=== PATIENT | male | born 1965 | race Caucasian/White ===

== ENCOUNTER → 2019-04-29 10:43 | Outpatient (BNVA) | payer OTHER, BC, SELFPAY | PROVIDERS: Family Provider Urology; PCP Urology; Visit Provider Urology | DX: E29.1 Testicular hypofunction (principal); N52.9 Male erectile dysfunction, unspecified; Z12.11 Encounter for screening for malignant neoplasm of colon | CPT/HCPCS: 81001; 84153 ==

== ENCOUNTER 2019-07-20 06:10 | Day surgery (SDC) | payer BC, SELFPAY ==
[2019-07-15 14:34] VITALS: BMI 28.7
[2019-07-20 06:22] VITALS: BP 152/100; PULSE 78; RESP 20; TEMP 36.7; O2SAT 96
--- NOTE | 2019-07-20 06:30 | W.PM.OPSFHP ---
Same Day Surgery H&P Indication for Procedure/HPI DATE OF PROCEDURE: July 20, 2019 CHIEF COMPLAINT/INDICATIONFOR SURGICAL PROCEDURE: Screening colonoscopy PREOP DIAGNOSIS: Encounter for screening colonoscopy PLANNED PROCEDRUE: Operation Date: 07/20/19 07:00 Proposed Procedures p Colonoscopy 66856 SCREEN FOR COLON CANCER Z12.11(Not Applicable) - Kobi Esparza MD This is a pleasant 54 years old gentleman never had screening colonoscopy before he was referred to surgery GI practice to discuss screening colonoscopy and does not have any pertinent history related to change in bowel habits, reports a skin tag that is causing irritation at the perianal area. Patient points out that he has a small skin tag perianal that has been irritating him ROS All systems have been reviewed negative except as for the above or per problem list Medications/Allergies* Home Medications Medication Instructions Recorded Confirmed Type No Known Home Medications 04/29/19 History Allergies/Adverse Reactions Allergy/AdvReac Type Severity Reaction Status Date / Time No Known Allergies Allergy Verified 07/20/19 06:47 Pertinent History/Comorbid Conditions* Medical History (Updated 04/29/19 @ 14:45 by Kelvin Vallecillo MD) ASHD (arteriosclerotic heart disease) Nonobstructive Erectile dysfunction Hypogonadism in male Pericarditis Surgical History (Updated 04/29/19 @ 14:44 by Kelvin Vallecillo MD) History of ankle surgery BILATERAL Previous back surgery Social History Smoking and tobacco status: never smoked Alcohol intake: current Alcohol intake frequency: holidays/special occasions only Household members: spouse Marital status: service: Yes Current occupational status: employed 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
[2019-07-20] MEDS: sodium chloride 0.9% 1,000 ML 30 ML IV (06:38)
--- NOTE | 2019-07-20 06:42 | ANES.PREANE2 ---
Pre-Anesthetic Assessment Pre-Anesthetic Assessment: Height/Weight: Height 1.91 m Weight 104.326 kg Temp Pulse Resp BP Pulse Ox 98.1 F 78 20 H 152/100 96 07/20/19 06:22 07/20/19 06:22 07/20/19 06:22 07/20/19 06:22 07/20/19 06:22 Preop Diagnosis: Screening colonoscopy Proposed Procedure: Operation Date: 07/20/19 07:00 Proposed Procedures p Colonoscopy [id number] SCREEN FOR COLON CANCER Z12.11(Not Applicable) - Kobi Esparza MD Was Beta Jhoana taken within 24 hours: N/A Last intake: Intake Last Liquid Date 07/19/19 Last Liquid Time 23:15 Last Solid Date 07/18/19 Last Solid Time 22:00 Social: Social History: Alcohol and No tobacco Exam: Pre-Anes Outpt Exam: alert, oriented x 3, clear to auscultation bilaterally and regular rate & rhythm Additional Exam Findings (including area of procedure): Airway: Submandibular: WNL Cervical ROM: WNL MP: 2 Dentition: Partials History/ROS: No significant history except as noted and No significant complaints Pulmonary: Pulmonary: None reported CV/HEM: Comments: pericarditit : : None reported Hepatic: Hepatic: None reported GI: GI: None reported Metabolic: Metabolic: None reported Musc/skel: Musc/skel: None reported Neuropsych: Neuropsych: None reported Anesthetic Plan: ASA status: 2 Anesthesia: Anesthesia Evaluation and MAC Risk of > 500 ml blood loss (7ml/kg in children): No Meds/Allergies Current Medications: Current Medications Generic Name Dose Route Start Last Admin Trade Name Freq PRN Reason Stop Dose Admin Sodium Chloride 1,000 mls @ 30 ml s/hr 07/20/19 06:15 07/20/19 06:38 Sodium Chloride 0.9% IV 07/21/19 06:14 30 mls/hr .Q24H MIRTHA Administration PFSH Anesthesia PFSH: Medical History ASHD (arteriosclerotic heart disease) Nonobstructive Erectile dysfunction Hypogonadism in male Pericarditis Surgical History History of ankle surgery BILATERAL Previous back surgery Social History (Updated 05/05/19 @ 15:45 by Honey Forde RN) Smoking and tobacco status: never smoked Alcohol intake: current Alcohol intake frequency: holidays/special occasions only Household members: spouse Marital status: service: Yes Current occupational status: employed 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
[2019-07-20 07:50] VITALS: BP 124/79; PULSE 78; RESP 16; TEMP 36.8; O2SAT 96
[2019-07-20 08:09] VITALS: BP 140/94; PULSE 85; RESP 18; O2SAT 95
--- NOTE | 2019-07-20 08:35 | PC.NURSE ---
PT AND SPOUSE GIVEN SPECIFIC INSTRUCTIONS CONCERNING POLYP RETRIEVAL. SUPPLIES SENT WITH PT AND SPOUSE. ALSO GIVEN INSTRUCTIONS FOR PT TO NOT WORK TODAY . PT STATES HE HAD PAPER WORK THAT NEEDED TO BE DONE.
== END 2019-07-20 08:33 | disposition home or self-care (01) ==
PROVIDERS: PCP Urology; Visit Provider Surgery
PROC: 0DJD8ZZ Inspection of Lower Intestinal Tract, Via Natural or Artificial Opening Endoscopic (ICD-10-PCS; CPT 45378; principal; 2019-07-20 07:00)
DX: Z12.11 Encounter for screening for malignant neoplasm of colon (principal); D12.0 Benign neoplasm of cecum; K64.4 Residual hemorrhoidal skin tags
CPT/HCPCS: 12345; 45385; 88305; J2001; J2704; J7030

== ENCOUNTER 2019-09-14 07:07 | Outpatient (CLI) | payer BC, SELFPAY ==
--- NOTE | 2019-09-14 07:15 | USCV_ITS ---
Damian Escalante Age: 54 Gender: M : 1965 Exam Date: 09/14/2019 07:20 Ordering Phys: Damian Nava MD ([email or web address]) Technologist: Makenna Smart Exam Location: [facility] – [place] Indication: RECURRENT CHEST PAIN BP: / HR: 81 Rhythm: Sinus Technical Quality: Adequate MEASUREMENTS (Male / Female) Normal Values 2D ECHO LV Diastolic Diameter PLAX 4.8 cm 4.2 - 5.9 / 3.9 - 5.3 cm LV Systolic Diameter PLAX 3.7 cm LV Chamber Size 4.4 cm IVS Diastolic Thickness 1.4 cm 0.6 - 1.0 / 0.6 - 0.9 cm IVS Systolic Thickness 2.1 cm LVPW Diastolic Thickness 1.4 cm 0.6 - 1.0 / 0.6 - 0.9 cm LVPW Systolic Thickness 1.6 cm RV Chamber Size 2.5 cm LVOT Diameter 2.1 cm LV Ejection Fraction 2D Teich 46.9 % LV Ejection Fraction MOD 2C 49.1 % LV Ejection Fraction 2C AL 49.9 % LA Diameter 3.2 cm LA Width 3.9 cm LA Height 4.0 cm RA Width 2.8 cm RA Height 4.7 cm Aorta at Sinotubular Diameter 3.2 cm M-MODE LV Diastolic Diameter MM 5.6 cm 4.2 - 5.9 / 3.9 - 5.3 cm LV Systolic Diameter MM 3.6 cm LV Ejection Fraction MM Teich 64.9 % IVS Diastolic Thickness MM 1.0 cm 0.6 - 1.0 / 0.6 - 0.9 cm IVS Systolic Thickness MM 1.6 cm LVPW Diastolic Thickness MM 1.2 cm 0.6 - 1.0 / 0.6 - 0.9 cm LVPW Systolic Thickness MM 1.3 cm RV Diastolic Diameter MM 1.7 cm Aortic Annulus Diameter 3.2 cm LA Ao Ratio MM 1.0 MV E Point Septal Separation 0.2 cm DOPPLER AV Peak Velocity 195.0 cm/s LVOT Peak Velocity 110.0 cm/s AV Area Cont Eq vti 2.5 cm squared AV Area Cont Eq pk 1.9 cm squared MV Area PHT 3.9 cm squared Mitral E to A Ratio 1.2 MV E' Velocity 11.0 cm/s Mitral E to MV E' Ratio 12.5 Mitral E to LV E' Lateral Ratio 10.7 Mitral E to LV E' Septal Ratio 15.2 TR Peak Velocity 135.9 cm/s TR Peak Gradient 7.4 mmHg TR Mean Velocity 99.5 cm/s TR Mean Gradient 4.6 mmHg TR Velocity Time Integral 26.1 cm TV Peak E Velocity 75.0 cm/s Right Atrial Pressure 3.0 mmHg Pulmonary Artery Systolic Pressu 10.4 mmHg PV Peak Velocity 82.0 cm/s RV Acceleration Time 0.2 s RV Ejection Time 0.3 s RV AcT/ET 0.6 FINDINGS Left Ventricle Normal left ventricular cavity size. Mild left ventricular hypertrophy. Normal left ventricular systolic function. Left ventricular ejection fraction is estimated at 60 %. Grade I/IV diastolic dysfunction (abnormal relaxation filling pattern), normal to mildly elevated filling pressures. Right Ventricle Normal right ventricular size and systolic function. Normal right ventricular systolic pressure. Right Atrium The right atrium is normal in size. Left Atrium The left atrium is normal in size. Mitral Valve Structurally normal mitral valve. Mild mitral valve regurgitation. Aortic Valve Structurally normal trileaflet aortic valve. No aortic valve stenosis. Mild aortic valve regurgitation. Tricuspid Valve Structurally normal tricuspid valve. Trace tricuspid valve regurgitation. Pulmonic Valve Pulmonic valve not well visualized. Pericardium Normal pericardium without effusion. Aorta Normal ascending aorta dimension. CONCLUSIONS Normal left ventricular cavity size. Mild left ventricular hypertrophy. Normal left ventricular systolic function. Left ventricular ejection fraction is estimated at 60 %. Grade I/IV diastolic dysfunction (abnormal relaxation filling pattern), normal to mildly elevated filling pressures. Structurally normal mitral valve. Mild mitral valve regurgitation. Structurally normal trileaflet aortic valve. No aortic valve stenosis. Mild aortic valve regurgitation. There are no prior echocardiogram studies to compare. Dr. Damian Nava MD (Electronically Signed) Final Date: 14 September 2019 09:59 S
== END 2019-09-14 07:08 | disposition home or self-care (01) ==
PROVIDERS: PCP Urology; Visit Provider Internal Medicine Cardiovascular Disease
DX: R07.9 Chest pain, unspecified (principal); I34.0 Nonrheumatic mitral (valve) insufficiency; I35.1 Nonrheumatic aortic (valve) insufficiency
CPT/HCPCS: 93306

== ENCOUNTER 2019-10-15 06:42 | Observation (INO) | payer BC, SELFPAY ==
[2019-10-15] VITALS (22 sets, daily range): BP systolic 103–154; BP diastolic 66–86; PULSE 73–108; RESP 14–22; TEMP 35.7–37.5; O2SAT 91–97; BMI 28.1
--- NOTE | 2019-10-15 07:08 | CTR_ITS ---
PROCEDURE INFORMATION: Exam: CT Abdomen And Pelvis With Contrast Exam date and time: 10/15/2019 7:26 AM Age: 54 years old Clinical indication: Abdominal pain; Localized; Right lower quadrant (rlq); Additional info: Rlq pain TECHNIQUE: Imaging protocol: Computed tomography of the abdomen and pelvis with intravenous contrast. Radiation optimization: All CT scans at this facility use at least one of these dose optimization techniques: automated exposure control; mA and/or kV adjustment per patient size (includes targeted exams where dose is matched to clinical indication); or iterative reconstruction. Contrast material: OMN 300; Contrast volume: 95 ml; Contrast route: INTRAVENOUS (IV); COMPARISON: No relevant prior studies available. RADIATION DOSE METRICS: Total DLP (mGy-cm): 1151.22 FINDINGS: Tubes, catheters and devices: Nerve stimulator device noted. Liver: Fatty liver. Gallbladder and bile ducts: No calcified stones. No ductal dilation. Pancreas: No ductal dilation. Spleen: Mild splenomegaly. Adrenals: No mass. Kidneys and ureters: No hydronephrosis. Stomach and bowel: Wall thickening of the cecum likely due to adjacent appendiceal inflammation. No bowel obstruction. Appendix: The appendix is thickened measuring approximately 9 mm with periappendiceal stranding. Intraperitoneal space: No free air. No significant fluid collection. Vasculature: No abdominal aortic aneurysm. Lymph nodes: No enlarged lymph nodes. Bladder: Unremarkable as visualized. Reproductive: Unremarkable as visualized. Bones/joints: Lumbar fusion. Soft tissues: Unremarkable. CT/CT abdomen pelvis w con* [id number] IMPRESSION: 1. Non perforated appendicitis. 2. Wall thickening of the cecum likely due to adjacent appendiceal inflammation. Follow-up evaluation may be obtained after resolution/treatment. Radiation Dose CTDIVOL = (mGy): DLP = 1151.22 (mGy-cm)
[2019-10-15] MEDS: ondansetron 2 mg/ML SDV 2 mL 4 MG IVP ×2 (07:14→13:46)
[2019-10-15] MEDS: HYDROmorphone 1 mg/mL INJ 1 mL IVP ×2 (07:15→07:58)
[2019-10-15 07:20] LABS: Basophils % 0.2 %; Eosinophils # 0.1 10^3/uL (0.0-0.8); Eosinophils % 0.6 %; Hematocrit 58.6 % (42.0-52.0); Hemoglobin 18.9 g/dL (11.7-16.6); Lymphocytes # 1.7 10^3/uL (0.8-4.8); Mean Corpuscular HGB Conc 32.3 g/dL (30.0-36.0); Mean Corpuscular Hemoglobin 30.1 pg (28.0-34.0); Mean Corpuscular Volume 93.5 fL (80-94); Mean Platelet Volume 10.5 fL (7.4-10.4); Monocytes % 6.1 %; Neutrophils # 14.01 10^3/uL (1.8-7.7); Neutrophils % 82.7 %; Nucleated Red Blood Cells % 0 %; Platelet Count 318 10^3/cmm (130-400); Red Blood Count 6.27 10^6/uL (4.1-5.3)
--- NOTE | 2019-10-15 07:24 | ED_ITS ---
HPI - Abdominal Pain General: Chief Complaint: Abdominal Pain Stated Complaint: ABD PAIN Time Seen by Provider: 10/15/19 07:20 History of Present Illness: HPI narrative: 54-year-old male presents emergency room with severe abdominal pains. He states he began less than around 930 and became progressively worse he can barely stand at this point. He reports the focus of the pain is in the right lower quadrant it initially began around the umbilicus and moved laterally. He has no significant appetite he has had some loose stools but not had any hematochezia. He has had nausea without vomiting no hematemesis coffee-ground emesis. He is not previously had any pain like this before he is not had any respiratory symptoms recently or been around anyone who is at COVID that he is aware. MD elicited complaint: abdominal pain Pertinent past history: none Onset (ago): hour(s) Pain Consistency: constant Location: Periumbilical Severity: severe Quality: stabbing Radiation: none Migration to: RLQ Exacerbating factors: movement Relieving factors: rest Associated Symptoms: Reports anorexia, bloating, chills, GI cramping, diarrhea, nausea and poor appetite; Denies coffee ground emesis, dysuria, fever(s), hematochezia, hematuria, hematemesis, melena and vomiting Review of Systems Const: Reports: chills; Denies: fever(s) ENMT: Denies: throat pain, ear or mastoid pain, nasal discharge or nasal congestion Card: Denies: chest pain, edema, dyspnea on exertion or orthopnea Resp: Denies: dyspnea, productive cough or non-productive cough GI: Reports: nausea, diarrhea, bloating and GI cramping; Denies: vomiting, hematemesis, coffee ground emesis, hematochezia or melena : Denies: dysuria or hematuria Skin/Breast: Denies: rash or pruritus PFS ED PFSH: Medical History (Updated 10/15/19 @ 10:26 by Leonard Angelo DO) ASHD (arteriosclerotic heart disease) Nonobstructive Chest pain (~06/2019) Erectile dysfunction Essential hypertension Hypogonadism in male Pericarditis Spinal cord stimulator status Surgical History History of ankle surgery BILATERAL Previous back surgery Social History Smoking and tobacco status: never smoked Alcohol intake: current Alcohol intake frequency: holidays/special occasions only Household members: spouse Marital status: service: Yes branch: [employer] Current occupational status: employed 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 Current gender identity: Male Physical Exam Const: COMMON NORMALS: no acute distress GENERAL APPEARANCE: cooperative and comfortable ORIENTATION/CONSCIOUSNESS: Yes awake, Yes oriented to person, Yes oriented to place and Yes oriented to time HENMT: COMMON NORMALS: normocephalic, atraumatic, hearing grossly normal bilaterally, external ears normal, EAC's normal, TM's normal bilaterally, Normal nasal mucous membranes and turbinates present, moist oral mucous membranes and oropharynx normal HEAD & SCALP: normocephalic and atraumatic NOSE: Normal nasal mucous membranes and turbinates present EXTERNAL EAR: Yes external ears normal EXTERNAL AUDITORY CANAL: EAC's normal TYMPANIC MEMBRANE: TM's normal bilaterally Eye: COMMON NORMALS: Equal, round and reactive pupils present, EOMs intact bilaterally, conjunctivae normal and no scleral icterus CONJUNCTIVA: Yes conjunctivae normal PUPIL: Yes Equal, round and reactive pupils present Neck/C-Spine: COMMON NORMALS: full ROM, no lymphadenopathy, supple and no JVD Lymph: LYMPHATIC: no lymphadenopathy noted and no lymphedema noted Resp: COMMON NORMALS: normal respiratory effort, No retractions, No use of accessory muscles and clear to auscultation bilaterally AUSCULTATION: clear to auscultation bilaterally Cardio: COMMON NORMALS: no JVD, regular rate, regular rhythm and No murmurs present (Cardio) RATE: regular rate RHYTHM: regular rhythm GI: AUSCULTATION: Yes Hypoactive bowel sounds present PALPATION: Yes Tenderness to palpation present (GI) Details: RLQ, Yes Guarding due to palpation present (GI) in the RLQ and Yes Rigid due to palpation Location: RLQ Extremity: COMMON NORMALS: normal to inspection, capillary refill normal, no clubbing, cyanosis or edema, no calf tenderness and no pedal edema Neuro: SENSORIUM/ORIENTATION: Yes oriented to person, Yes oriented to place and Yes oriented to time Skin: COMMON NORMALS: no rashes or lesions noted GENERAL SKIN EXAM: no rashes or lesions noted Course Vital Signs: Vital signs: Vital Signs Temperature 97.8 F 10/15/19 09:54 Pulse Rate 73 10/15/19 09:54 Respiratory Rate 18 10/15/19 09:54 Blood Pressure 154/67 10/15/19 09:54 Pulse Oximetry 95 10/15/19 09:54 MDM - Abdominal Pain MDM Narrative: Medical decision making narrative: CT shows acute appendicitis. Discussed Dr. Esparza will admit he is in the operating room now so we will put this patient on observation on the floor he is to follow be kept n.p.o. Lab Data: Labs: Lab Results 10/15/19 10/15/19 10/15/19 Range/Units 07:07 07:07 07:07 WBC 17.0 H (4.0-10.0) 10^3/ uL RBC 6.27 H (4.1-5.3) 10^6/u L Hgb 18.9 H (11.7-16.6) g/dL Hct 58.6 H (42.0-52.0) % MCV 93.5 (80-94) fL MCH 30.1 (28.0-34.0) pg MCHC 32.3 (30.0-36.0) g/dL RDW 15.0 (12.1-15.1) % Plt Count 318 (130-400) 10^3/c mm MPV 10.5 H (7.4-10.4) fL Neut % (Auto) 82.7 % Lymph % (Auto) 10.0 % [place] % (Auto) 6.1 % Eos % (Auto) 0.6 % Baso % (Auto) 0.2 % Neut # (Auto) 14.01 H (1.8-7.7) 10^3/u L Lymph # (Auto) 1.7 (0.8-4.8) 10^3/u L [place] # (Auto) 1.0 H (0.2-0.9) 10^3/u L Eos # (Auto) 0.1 (0.0-0.8) 10^3/u L Baso # (Auto) 0.0 (0.0-0.1) 10^3/u L Nucleated RBC % (a uto) 0 % Nucleated RBCs # 0.0 /100WBC Sodium 140 (136-145) mmol/L Potassium 5.3 H (3.5-5.1) mmol/L Chloride 101 (98-107) mmol/L Carbon Dioxide 30 H (22-29) mmol/L Anion Gap 14.3 (5-19) BUN 21 H (6-20) mg/dL Creatinine 1.3 H (0.7-1.2) mg/dL GFR Calculation 57.1 L (90-130) mL/min Glucose 151 H (65-115) mg/dL Calculated Osmolal ity 290 (285-295) mOsm/k g Lactate 2.1 (0.5-2.2) mmol/L Calcium 9.4 (8.5-10.5) mg/dL Total Bilirubin 1.2 (0.15-1.2) mg/dL AST 38 (0-40) U/L ALT 72 H (0-41) U/L Alkaline Phosphata se 72 (40-130) IU/L Total Protein 7.9 (6.6-8.7) g/dL Albumin 4.6 (3.5-5.2) g/dL Globulin 3.3 (1.3-4.6) g/dL Lipase 23 (13-60) U/L Urine Color (Yellow) Urine Appearance (CLEAR) Urine pH (5-7) Ur Specific Gravit y (1.005-1.030) Urine Protein (Negative) Urine Glucose (UA) (Normal) Urine Ketones (Negative) Urine Blood (Negative) Urine Nitrate (Negative) Urine Bilirubin (NEGATIVE) Urine Urobilinogen (Negative) mg/dL Ur Leukocyte Susi ase (Negative) Urine RBC (0-2) /hpf Urine WBC (0-5) /hpf Ur Squamous Epith Cells (0-5) Amorphous Sediment Urine Bacteria (NONE) 10/15/19 Range/Units 09:19 WBC (4.0-10.0) 10^3/ uL RBC (4.1-5.3) 10^6/u L Hgb (11.7-16.6) g/dL Hct (42.0-52.0) % MCV (80-94) fL MCH (28.0-34.0) pg MCHC (30.0-36.0) g/dL RDW (12.1-15.1) % Plt Count (130-400) 10^3/c mm MPV (7.4-10.4) fL Neut % (Auto) % Lymph % (Auto) % [place] % (Auto) % Eos % (Auto) % Baso % (Auto) % Neut # (Auto) (1.8-7.7) 10^3/u L Lymph # (Auto) (0.8-4.8) 10^3/u L [place] # (Auto) (0.2-0.9) 10^3/u L Eos # (Auto) (0.0-0.8) 10^3/u L Baso # (Auto) (0.0-0.1) 10^3/u L Nucleated RBC % (a uto) % Nucleated RBCs # /100WBC Sodium (136-145) mmol/L Potassium (3.5-5.1) mmol/L Chloride (98-107) mmol/L Carbon Dioxide (22-29) mmol/L Anion Gap (5-19) BUN (6-20) mg/dL Creatinine (0.7-1.2) mg/dL GFR Calculation (90-130) mL/min Glucose (65-115) mg/dL Calculated Osmolal ity (285-295) mOsm/k g Lactate (0.5-2.2) mmol/L Calcium (8.5-10.5) mg/dL Total Bilirubin (0.15-1.2) mg/dL AST (0-40) U/L ALT (0-41) U/L Alkaline Phosphata se (40-130) IU/L Total Protein (6.6-8.7) g/dL Albumin (3.5-5.2) g/dL Globulin (1.3-4.6) g/dL Lipase (13-60) U/L Urine Color Yellow (Yellow) Urine Appearance Clear (CLEAR) Urine pH 5 (5-7) Ur Specific Gravit y 1.010 (1.005-1.030) Urine Protein Trace (Negative) Urine Glucose (UA) Norm (Normal) Urine Ketones Negative (Negative) Urine Blood 2+ H (Negative) Urine Nitrate Negative (Negative) Urine Bilirubin Neg (NEGATIVE) Urine Urobilinogen Norm (Negative) mg/dL Ur Leukocyte Susi ase Negative (Negative) Urine RBC Rare (0-2) /hpf Urine WBC None (0-5) /hpf Ur Squamous Epith Cells None (0-5) Amorphous Sediment Not Reportable Urine Bacteria Trace (NONE) Discharge Plan Discharge Patient Disposition: Placed in Observation Clinical Impression: Acute appendicitis Condition: Stable Interventions: ED Discharge Assessment Last Done: 10/15/19 09:54 ED Charges Last Done: 10/15/19 09:54 Discharge Date/Time: 10/15/19 09:56 Coding Level of Care Code ED Blind Stitch Machine Operator for Darlin Fwd Exam Comprehensive
[2019-10-15 07:45] LABS: Lactate (Lactic Acid level) 2.1 mmol/L (0.5-2.2)
[2019-10-15] MEDS: iohexol 300 mg/mL 100 mL Btl IV (07:45)
[2019-10-15 07:48] LABS: Alanine Aminotransferase 72 U/L (0-41); Albumin Level 4.6 g/dL (3.5-5.2); Alkaline Phosphatase 72 IU/L (40-130); Blood Urea Nitrogen 21 mg/dL (6-20); Calcium 9.4 mg/dL (8.5-10.5); Carbon Dioxide 30 mmol/L (22-29); Chloride 101 mmol/L (98-107); Globulin 3.3 g/dL (1.3-4.6); Glomerular Filtration Rate 57.1 mL/min (90-130); Glucose 151 mg/dL (65-115); Lipase 23 U/L (13-60); Osmolality Calculated 290 mOsm/kg (285-295); Sodium 140 mmol/L (136-145); Total Bilirubin 1.2 mg/dL (0.15-1.2); Total Protein 7.9 g/dL (6.6-8.7)
[2019-10-15 07:58] LABS: Anion Gap 14.3 (5-19); Aspartate Amino Transferase 38 U/L (0-40); Potassium 5.3 mmol/L (3.5-5.1)
[2019-10-15] MEDS: sodium chloride 0.9% 1,000 ML 999 ML IV ×2 (08:57→09:24)
--- NOTE | 2019-10-15 09:06 | P.HP_ITS ---
Providers/Chief Complaint Primary Care Provider: Kelvin Vallecillo MD Chief Complaint: ABD PAIN History of Present Illness Chief Complaint: Abdominal pain History of present illness: Mr Damian Escalante is a pleasant 54 year old male well-known to me from previous clinical encounter, patient presented to the emergency department with worsening abdominal pain and was further evaluated found to have leukocytosis and CT scan showed acute appendicitis. Back in July 20, 2019 patient undergone a screening colonoscopy and was found to have with the anal skin tags and a cecal polyp that was not retrieved otherwise normal colonoscopy. COMPARISON: No relevant prior studies available. RADIATION DOSE METRICS: Total DLP (mGy-cm): 1151.22 FINDINGS: Tubes, catheters and devices: Nerve stimulator device noted. Liver: Fatty liver. Gallbladder and bile ducts: No calcified stones. No ductal dilation. Pancreas: No ductal dilation. Spleen: Mild splenomegaly. Adrenals: No mass. Kidneys and ureters: No hydronephrosis. Stomach and bowel: Wall thickening of the cecum likely due to adjacent appendiceal inflammation. No bowel obstruction. Appendix: The appendix is thickened measuring approximately 9 mm with periappendiceal stranding. Intraperitoneal space: No free air. No significant fluid collection. Vasculature: No abdominal aortic aneurysm. Lymph nodes: No enlarged lymph nodes. Bladder: Unremarkable as visualized. Reproductive: Unremarkable as visualized. Bones/joints: Lumbar fusion. Soft tissues: Unremarkable. CT/CT abdomen pelvis w con* [id number] IMPRESSION: 1. Non perforated appendicitis. 2. Wall thickening of the cecum likely due to adjacent appendiceal inflammation. Follow-up evaluation may be obtained after resolution/treatment. General surgery was consulted for further evaluation potential intervention Patient reports that pain started yesterday about time 9 PM around the bellybutton started shifting to the right lower quadrant associated with nausea and loose stools but no evidence of fevers chills or dysuria. Patient's pain started to be worse presented to the emergency department for further evaluation and was found to have on blood work leukocytosis and a CT scan that showed acute appendicitis Review of Systems General: Reports: 10 or more systems reviewed and unremarkable except in HPI and below Medications/Allergies Home Medications Medication Instructions Recorded Confirmed Last Taken Type losartan 50 mg tablet 50 mg PO DAILY #30 tab 08/29/19 09/15/19 Unknown Rx garlic 400 mg PO DAILY 10/15/19 10/15/19 10/14/19 History testosterone cypionate 200 mg IM .COMPEX 10/15/19 10/15/19 10/09/19 History Allergies Allergy/AdvReac Type Severity Reaction Status Date / Time No Known Allergies Allergy Verified 10/15/19 09:33 PFSH Acute PFSH: Medical History ASHD (arteriosclerotic heart disease) Nonobstructive Chest pain (~06/2019) Erectile dysfunction Essential hypertension Hypogonadism in male Pericarditis Spinal cord stimulator status Surgical History History of ankle surgery BILATERAL Previous back surgery Social History Smoking and tobacco status: never smoked Alcohol intake: current Alcohol intake frequency: holidays/special occasions only Household members: spouse Marital status: service: Yes branch: [employer] Current occupational status: employed 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 Current gender identity: Male Vitals/I&O/Wt Last Vital Signs Temp 98.3 F 10/15/19 07:16 Pulse 102 H 10/15/19 07:52 Resp 20 H 10/15/19 07:58 BP 150/66 10/15/19 07:52 Pulse Ox 97 10/15/19 07:52 Weight last 48 hrs Weight 225 lb Physical Exam Narrative: EXAM NARRATIVE: Patient is conscious alert oriented X3 BMI 28 Head and neck examination PERRLA no masses no cervical lymphadenopathy no jaundice Cardiac examination audible S1-S2 no murmurs no gallops no arrhythmias Chest is clear bilateral,abscence of Rhonchi or wheezes,no surgical emphysema Abdomen right lower quadrant tenderness with localized rigidity and rebound c onsistent with acute appendicitis at McBurney's point, nondistended soft no organomegaly Extremities no cyanosis no clubbing no edema Data : 10/15/19 07:07 10/15/19 07:07 A&P Assessment and plan (1) Acute appendicitis: After thorough history physical examination and reviewing the chart and images with my personal interpretion, I counseled the patient for laparoscopic appendectomy possible open. Indications, risks, benefits and alternatives were all discussed with the patient and did agree to proceed. Rationale was carefully and clearly discussed with the patient.Appropriate informed consent have been reviewed and signed Status: Acute Attestations Medical Necessity Statement*: Observation status Time Spent in Patient Care: (>than 50% of time spent in counselling and/or direct pt care on unit) . Coding Level of Care Code Acute Hand Launderer for [facility] Fwd Diagnoses Acute appendicitis K35.80
[2019-10-15 09:44] LABS: Blood Urine 2+ (Negative); Glucose Urine UA Norm (Normal); Ketones Urine Negative (Negative); Protein Urine Trace (Negative); Urine Appearance Clear (CLEAR); Urine Color Yellow (Yellow); pH Urine 5 (5-7)
[2019-10-15 09:45] LABS: Add Urine Microscopic? YES; Bilirubin Urine Neg (NEGATIVE); Leukocyte Esterase Urine Negative (Negative); Nitrate Urine Negative (Negative); Urobilinogen Urine Norm (Negative)
[2019-10-15 09:46] LABS: Bacteria Urine TRACE; RBC Urine RARE /hpf (0-2)
[2019-10-15 09:47] LABS: Add Urine Culture? No
--- NOTE | 2019-10-15 09:59 | ANES.PREANE2 ---
Pre-Anesthetic Assessment Pre-Anesthetic Assessment: Height/Weight: Height 1.91 m Weight 102.058 kg Temp Pulse Resp BP Pulse Ox 97.8 F 73 18 154/67 95 10/15/19 09:54 10/15/19 09:54 10/15/19 09:54 10/15/19 09:54 10/15/19 09:54 Preop Diagnosis: Screening colonoscopy Proposed Procedure: Operation Date: 10/15/19 11:25 Proposed Procedures p Appendectomy(Not Applicable) - Kobi Esparza MD Was Beta Jhoana taken within 24 hours: N/A Social: Social History: No alcohol and No tobacco Exam: Pre-Anes Outpt Exam: alert, oriented x 3, clear to auscultation bilaterally and regular rate & rhythm Airway: Submandibular: WNL Cervical ROM: WNL MP: 2 Dentition: Full History/ROS: No significant history except as noted Pulmonary: Pulmonary: None reported CV/HEM: CV/HEM: HTN : : None reported Hepatic: Hepatic: None reported GI: Comments: acute appe Metabolic: Metabolic: None reported Musc/skel: Musc/skel: None reported Neuropsych: Neuropsych: None reported Anesthetic Plan: ASA status: 2 Anesthesia: General Other: Mod RSI Risk of > 500 ml blood loss (7ml/kg in children): No PFSH Anesthesia PFSH: Medical History (Updated 10/15/19 @ 07:59 by Leonard Angelo DO) ASHD (arteriosclerotic heart disease) Nonobstructive Chest pain (~06/2019) Erectile dysfunction Essential hypertension Hypogonadism in male Pericarditis Spinal cord stimulator status Surgical History History of ankle surgery BILATERAL Previous back surgery Social History Smoking and tobacco status: never smoked Alcohol intake: current Alcohol intake frequency: holidays/special occasions only Household members: spouse Marital status: service: Yes branch: [employer] Current occupational status: employed 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 Current gender identity: Male Data Anesthesia CBC & Chem 7: 10/15/19 07:07 10/15/19 07:07 Other Labs: Laboratory Results - last 48 hr 10/15/19 10/15/19 10/15/19 07:07 07:07 07:07 WBC 17.0 H RBC 6.27 H Hgb 18.9 H Hct 58.6 H MCV 93.5 MCH 30.1 MCHC 32.3 RDW 15.0 Plt Count 318 MPV 10.5 H Neut % (Auto) 82.7 Lymph % (Auto) 10.0 Nicholas % (Auto) 6.1 Eos % (Auto) 0.6 Baso % (Auto) 0.2 Neut # (Auto) 14.01 H Lymph # (Auto) 1.7 Nicholas # (Auto) 1.0 H Eos # (Auto) 0.1 Baso # (Auto) 0.0 Nucleated RBC % (auto) 0 Nucleated RBCs # 0.0 Sodium 140 Potassium 5.3 H Chloride 101 Carbon Dioxide 30 H Anion Gap 14.3 BUN 21 H Creatinine 1.3 H GFR Calculation 57.1 L Glucose 151 H Calculated Osmolality 290 Lactate 2.1 Calcium 9.4 Total Bilirubin 1.2 AST 38 ALT 72 H Alkaline Phosphatase 72 Total Protein 7.9 Albumin 4.6 Globulin 3.3 Lipase 23 Urine Color Urine Appearance Urine pH Ur Specific [place] Urine Protein Urine Glucose (UA) Urine Ketones Urine Blood Urine Nitrate Urine Bilirubin Urine Urobilinogen Ur Leukocyte Esterase Urine RBC Urine WBC Ur Squamous Epith Cells Amorphous Sediment Urine Bacteria 10/15/19 09:19 WBC RBC Hgb Hct MCV MCH MCHC RDW Plt Count MPV Neut % (Auto) Lymph % (Auto) Nicholas % (Auto) Eos % (Auto) Baso % (Auto) Neut # (Auto) Lymph # (Auto) Nicholas # (Auto) Eos # (Auto) Baso # (Auto) Nucleated RBC % (auto) Nucleated RBCs # Sodium Potassium Chloride Carbon Dioxide Anion Gap BUN Creatinine GFR Calculation Glucose Calculated Osmolality Lactate Calcium Total Bilirubin AST ALT Alkaline Phosphatase Total Protein Albumin Globulin Lipase Urine Color Yellow Urine Appearance Clear Urine pH 5 Ur Specific [place] 1.010 Urine Protein Trace Urine Glucose (UA) Norm Urine Ketones Negative Urine Blood 2+ H Urine Nitrate Negative Urine Bilirubin Neg Urine Urobilinogen Norm Ur Leukocyte Esterase Negative Urine RBC Rare Urine WBC None Ur Squamous Epith Cells None Amorphous Sediment Not Reportable Urine Bacteria Trace Cardiac Studies: Holter Monitor 09/23/19
[2019-10-15] MEDS: piperacillin-tazobactam 3.375 GM in sodium chloride 0.9% (plus) 50 ML IV ×2 (11:48→17:16)
[2019-10-15] MEDS: lidocaine 2% INJ 20 mL INJECTION (12:33)
--- NOTE | 2019-10-15 12:49 | PM.OP ---
Operative Report Date of procedure: October 15, 2019 Pre-op Diagnosis: Acute appendicitis Post-op diagnosis: other (Acute appendicitis with perforation towards the base of the appendix) Post-op Findings: Flakes of fibrinous exudate onto the terminal ileum Procedure Done: Laparoscopic appendectomy and partial cecectomy Specimens removed/disposition: Appendix and partial cecectomy Surgeon: Kobi Esparza Engineering Production Worker: Surgical gela Johnston Circulating nurse Libby Anesthesia: General (Mario Henderson and Dr. Stafford) Estimated blood loss (mL): 10 Condition: stable Disposition: floor Brief History: This is a pleasant 54 years old gentleman presents with worsening abdominal pain towards the right lower quadrant and was found to have an acute appendicitis on the CT scan . After thorough history physical examination and reviewing the chart and images with my personal interpretion, I counseled the patient for laparoscopic appendectomy possible open. Indications, risks, benefits and alternatives were all discussed with the patient and did agree to proceed. Rationale was carefully and clearly discussed with the patient.Appropriate informed consent have been reviewed and signed Procedure: Patient after being identified in the holding area and asked to void urine, and informed consent per chart ,patient was then taken back to the OR placed in supine position got intubated by anesthesia left arm was tucked tucked ,Timeout was done verifying the patient's name/date of /planned procedure and destination after the procedure, all were in agreement., preoperative antibiotics administered per protocol. prep and drape of the abdomen was done under the usual sterile technique. Started by longitudinal skin incision supraumbilical using a Chi trocar technique safe entry to the abdominal cavity was achieved verified by using 10 mm zero degree laparoscopy, switched to a 30? scope under direct visualization a suprapubic 5 mm trocar was inserted followed by another 5 mm trocar inserted in the left lower quadrant, I was able to position the patient in an T Thornton and left side down. Was evidence of flakes of fibrinous exudates onto the nearby small bowel encasing the inflamed appendix Dissection of the prececal acutely inflamed appendix there was some adhesions towards the lateral pelvic wall that was taken down by sharp and blunt dissection,I did appreciate a perforation towards the base of the appendix where I had to switch the camera to 5 mm 30? scope got introduced through the left lower quadrant and through the Chi trocar under direct visualization a GI stapler 45 mm blue loadx2 was applied at the healthy part of the cecum to encompass the perforated part towards the base of the appendix. There was no evidence of cecal masses just inflamed wall Clips were applied onto the mesoappendix the rest of the mesentery was inflamed The appendix and partial cecectomy was then retrieved in an Endo Catch bag, final survey was done of the abdomen and pelvis , copious irrigation with warm saline about 2 L, and suction was obtained, were purulent fluid like in the pelvis due to reaction from the inflamed and perforated appendix. A 5 mm clips were applied onto the mesoappendix as well as the appendectomy staple line and a right lateral pelvic wall for minimal oozing. Final look laparoscopy was done showing no other abnormalities or injuries, all trocars were taken out under direct visualization after the supraumblical trocar site was closed by 0 Vicryl sutures under direct vision using fascial closure device ,followed by skin closure using 4-0 Monocryl of all trocar site incisions. infiltration of local lidocaine 2% was done to all incision sites.Dry dressing was applied. Count was completed at the end of the procedure for [place] , sponges and instruments Patient tolerated the procedure well and was transferred to the recovery area after extubation. I was present for the whole entire procedure
--- NOTE | 2019-10-15 13:18 | PM.PACU ---
PACU note PACU note: VSS, good pain control. Post-Anesthesia Exam: somnolent, arousable Disposition: back to floor
[2019-10-15] MEDS: morphine 4 mg/mL SDV 1 mL 2 MG IVP ×4 (13:31→13:45)
[2019-10-15] MEDS: sodium chloride 0.9% 1,000 ML 125 ML IV ×2 (14:50→22:54)
[2019-10-15] MEDS: HYDROcodone-acetaminophen 5-325 mg Tablet 1 TAB PO ×2 (17:16→22:53)
--- NOTE | 2019-10-15 17:28 | ECG_ITS ---
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 Measurements Intervals [place] Rate: 92 P: 26 CO: 164 QRS: -26 QRSD: 91 T: -3 QT: 319 QTc: 395 Interpretive Statements SINUS RHYTHM BORDERLINE LEFT AXIS DEVIATION [QRS AXIS < -20] No previous ECG available for comparison Electronically Signed On 10-15-2019 19:04:41 CDT by Barrie Lewis M.D. [email or web address] specialty hospital - [email or web address] Options [id number]
--- NOTE | 2019-10-15 18:16 | PC.NURSE ---
SHIFT SUMMARY PATIENT HAS AMBULATED SEVERAL TIMES SINCE ARRIVING TO THE FLOOR FROM SURGERY. PAIN HAS BEEN WELL CONTROLLED. PATIENT COMPLAINING OF SHOULDER AND CHEST PAIN WHILE DR. LEIVA AT BEDSIDE. EXPLANATION WAS GIVEN OF GAS PAIN. EKG ORDERED. GOOD URINE OUTPUT. NO COMPLAINTS AT THIS TIME.
[2019-10-16] VITALS (7 sets, daily range): BP systolic 105–144; BP diastolic 65–83; PULSE 68–96; RESP 12–18; TEMP 36.6–37.3; O2SAT 93–95
[2019-10-16] MEDS: piperacillin-tazobactam 3.375 GM in sodium chloride 0.9% (plus) 50 ML IV ×3 (01:02→17:27)
[2019-10-16 04:56] LABS: Hematocrit 46.5 % (42.0-52.0); Hemoglobin 14.8 g/dL (11.7-16.6); Lymphocytes # 0.6 10^3/uL (0.8-4.8); Lymphocytes % 4.7 %; Mean Corpuscular HGB Conc 31.8 g/dL (30.0-36.0); Mean Corpuscular Hemoglobin 30.3 pg (28.0-34.0); Mean Corpuscular Volume 95.1 fL (80-94); Mean Platelet Volume 10.4 fL (7.4-10.4); Monocytes # 0.5 10^3/uL (0.2-0.9); Monocytes % 3.8 %; Neutrophils # 11.21 10^3/uL (1.8-7.7); Neutrophils % 90.9 %; Nucleated Red Blood Cells % 0 %; Platelet Count 236 10^3/cmm (130-400); Red Blood Count 4.89 10^6/uL (4.1-5.3); Red Cell Distribution Width 14.7 % (12.1-15.1); White Blood Count 12.3 10^3/uL (4.0-10.0)
[2019-10-16 05:25] LABS: Anion Gap 13.3 (5-19); Blood Urea Nitrogen 18 mg/dL (6-20); Calcium 8.5 mg/dL (8.5-10.5); Carbon Dioxide 26 mmol/L (22-29); Chloride 103 mmol/L (98-107); Glomerular Filtration Rate 57.1 mL/min (90-130); Glucose 141 mg/dL (65-115); Osmolality Calculated 285 mOsm/kg (285-295); Potassium 4.3 mmol/L (3.5-5.1); Sodium 138 mmol/L (136-145)
[2019-10-16] MEDS: sodium chloride 0.9% 1,000 ML 125 ML IV ×3 (06:17→21:14)
[2019-10-16] MEDS: HYDROcodone-acetaminophen 5-325 mg Tablet 1 TAB PO ×3 (06:19→19:35)
--- NOTE | 2019-10-16 06:53 | P.PN_ITS ---
Subjective Subjective: Interval history: Patient overall feels better and denies any chest pain Trending down leukocytosis Not pass gas yet Vitals/I&O/Wt Last Vital Signs Temp 98.2 F 10/16/19 04:00 Pulse 79 10/16/19 04:00 Resp 18 10/16/19 04:00 BP 105/65 10/16/19 04:00 Pulse Ox 93 10/16/19 04:00 10/15/19 10/15/19 10/16/19 14:59 22:59 06:59 Intake Total 150 / 150 1290 / 1440 1812.917 / 3252.917 Output Total 1100 / 1120 2065 / 3185 Balance 130 / 130 190 / 320 -252.083 / 67.917 Weight last 48 hrs Weight 225 lb Physical Exam Narrative: EXAM NARRATIVE: Patient is conscious alert oriented X3 BMI 28 Head and neck examination PERRLA no masses no cervical lymphadenopathy no jaundice Cardiac examination audible S1-S2 no murmurs no gallops no arrhythmias Chest is clear bilateral,abscence of Rhonchi or wheezes,no surgical emphysema Abdomen nontender nondistended soft no organomegaly guarding or rigidity/no signs of peritonitis Incisions are clean dry and intact Extremities no cyanosis no clubbing no edema Data : 10/16/19 04:27 10/16/19 14:20 A&P Assessment and plan (1) Acute appendicitis: Patient undergone uneventful laparoscopic appendectomy 10/15/2019 Once patient starts passing gas will advance diet as tolerated We will continue IV antimicrobial therapy We will continue hospital stay and follow-up on the trend for the WBC count due to the perforated nature of appendicitis Encourage ambulation Assurance and education All questions have been answered and all concerns have been addressed to patient's satisfaction. Status: Resolved Attestations Medical Necessity Statement*: Observation Time Spent in Patient Care: (>than 50% of time spent in counselling and/or direct pt care on unit) . Coding Level of Care Code Acute Family Support Worker for Darlin Owusu Diagnoses Acute appendicitis K35.80
--- NOTE | 2019-10-16 12:28 | PC.CHAP ---
Pastoral Care Encounter/Spiritual Assessment Type of Contact [] Declined home energy rater visit [] Patient/Family/Request visit [] Outpatient visit [] Follow-up visit [] Physician referral [] Code/Alert [X] Routine visit [] Staff referral [] Actively dying [] Patient sleeping [] Family support [] [] Out of room [] Palliative care [] [] Receiving care in room [] Pre-surgical visit [] Trauma [] Long length of stay [] ICU visit [] Other: Relational/Emotional Strength [X] Patient feels connected with others/family/visitors/staff [] Distress [] Loneliness/isolation [] Abandonment Spirituality of Patient [X] Person of Carmen [] Attends Sabianist of their Carmen [X] Believes in Prayer [] Reads Bible or Lutheran materials [] There are Spiritual issues to be addressed Luggage Attendant Interventions [] Prayer [X] Active listening [X] Non-anxious presence [] Spiritual/emotional support [] Crisis/trauma care [] Spiritual counseling [] Bereavement support [] Provided bereavement packet [] Provided Bible/devotional materials [] Provided toy/stuffed animal, coloring book to patient or family member [] Provided Communion [] Anointing/[place] [] Salvation [X] Completed spiritual assessment [] Other: Impact on Illness or Injury [] Angry [] Fearful [] Anxious [] Often cries [] Exhaustion [] Unable to work [] Unable to attend bahai [] Unable to walk/stand [] Unable to read [] Unable to drive [] Unable to eat/drink [] Unable to sleep [] Unable to be with family [] Patient intubated [] Other: Summary: Pt has good support system at home, and his will be visiting him during visiting hours this afternoon. When i offered prayer, he stated that he joined the overhead prayer this morning and sincerely appreciated it. Time spent with patient: 5-7 mins
[2019-10-16] MEDS: morphine 4 mg/mL SDV 1 mL IVP ×2 (14:22→19:32)
[2019-10-16 14:53] LABS: Anion Gap 11.5 (5-19); Blood Urea Nitrogen 17 mg/dL (6-20); Calcium 8.6 mg/dL (8.5-10.5); Carbon Dioxide 26 mmol/L (22-29); Chloride 106 mmol/L (98-107); Glomerular Filtration Rate 57.1 mL/min (90-130); Glucose 111 mg/dL (65-115); Osmolality Calculated 285 mOsm/kg (285-295); Potassium 4.5 mmol/L (3.5-5.1); Sodium 139 mmol/L (136-145)
--- NOTE | 2019-10-16 17:57 | PC.NURSE ---
SHIFT SUMMARY PATIENT HAS AMBULATED MULTIPLE TIMES TODAY. PAIN WELL CONTROLLED. PATIENT HAS ONLY HAD ONE DOSE OF BREAKTHROUGH MEDICATION. GOOD PO INTAKE. GOOD URINE OUTPUT. HYPERACTIVE BOWEL SOUNDS. NEGATIVE FOR GAS. NO NAUSEA. SURGICAL SITES ASYMPTOMATIC.
[2019-10-17] VITALS: BP 126/76; PULSE 78; RESP 18; TEMP 36.6; O2SAT 94
[2019-10-17] MEDS: piperacillin-tazobactam 3.375 GM in sodium chloride 0.9% (plus) 50 ML IV ×2 (01:54→10:20)
[2019-10-17 04:00] VITALS: BP 155/88; PULSE 74; RESP 20; TEMP 36.5; O2SAT 94
[2019-10-17 04:29] LABS: Basophils % 0.1 %; Eosinophils # 0.1 10^3/uL (0.0-0.8); Eosinophils % 0.6 %; Hemoglobin 14.5 g/dL (11.7-16.6); Lymphocytes # 0.8 10^3/uL (0.8-4.8); Lymphocytes % 9.3 %; Mean Corpuscular HGB Conc 32.2 g/dL (30.0-36.0); Mean Corpuscular Hemoglobin 30.9 pg (28.0-34.0); Mean Corpuscular Volume 95.9 fL (80-94); Mean Platelet Volume 10.4 fL (7.4-10.4); Monocytes # 0.6 10^3/uL (0.2-0.9); Monocytes % 7.5 %; Neutrophils # 7.06 10^3/uL (1.8-7.7); Neutrophils % 82.3 %; Nucleated Red Blood Cells % 0 %; Platelet Count 224 10^3/cmm (130-400); Red Blood Count 4.69 10^6/uL (4.1-5.3); White Blood Count 8.6 10^3/uL (4.0-10.0)
[2019-10-17] MEDS: sodium chloride 0.9% 1,000 ML 125 ML IV (04:51)
[2019-10-17 04:54] LABS: Anion Gap 9.8 (5-19); Blood Urea Nitrogen 16 mg/dL (6-20); Calcium 8.4 mg/dL (8.5-10.5); Carbon Dioxide 28 mmol/L (22-29); Chloride 109 mmol/L (98-107); Glomerular Filtration Rate 57.1 mL/min (90-130); Glucose 96 mg/dL (65-115); Osmolality Calculated 290 mOsm/kg (285-295); Potassium 4.8 mmol/L (3.5-5.1); Sodium 142 mmol/L (136-145)
--- NOTE | 2019-10-17 06:15 | PM.PN ---
Subjective Subjective: Interval history: Patient overall doing well and WBC count normalized yet did not pass gas yet Vitals/I&O/Wt Last Vital Signs Temp 97.7 F 10/17/19 04:00 Pulse 74 10/17/19 04:00 Resp 20 H 10/17/19 04:00 BP 155/88 10/17/19 04:00 Pulse Ox 94 10/17/19 04:00 10/16/19 10/16/19 10/17/19 14:59 22:59 06:59 Intake Total 1310 / 1310 1018.75 / 2328.75 952.083 / 3280.833 Output Total 1000 / 1000 825 / 1825 725 / 2550 Balance 310 / 310 193.75 / 503.75 227.083 / 730.833 Weight last 48 hrs Weight 225 lb Physical Exam Narrative: EXAM NARRATIVE: Patient is conscious alert oriented X3 BMI 28 Head and neck examination PERRLA no masses no cervical lymphadenopathy no jaundice Abdomen nontender nondistended soft no organomegaly guarding or rigidity/no signs of peritonitis Incisions are clean dry and intact Extremities no cyanosis no clubbing no edema Data : 10/17/19 04:08 10/17/19 04:08 A&P Assessment and plan (1) Acute appendicitis: Patient undergone uneventful laparoscopic appendectomy 10/15/2019 Once patient starts passing gas will advance diet as tolerated We will continue IV antimicrobial therapy Once patient is tolerating advancement of diet after passage of gas will plan to send him home today on oral antibiotics Encourage ambulation Assurance and education All questions have been answered and all concerns have been addressed to patient's satisfaction. Status: Resolved Attestations Medical Necessity Statement*: Observation status Time Spent in Patient Care: (>than 50% of time spent in counselling and/or direct pt care on unit). Coding Level of Care Code Acute Sales Representative Facility Services for Darlin Owusu Diagnoses Acute appendicitis K35.80
--- NOTE | 2019-10-17 06:39 | PC.NURSE ---
Patient stated that he has passed gas.
[2019-10-17 07:48] VITALS: BP 146/80; PULSE 83; RESP 18; TEMP 36.9; O2SAT 95
[2019-10-17 11:49] VITALS: BP 136/84; PULSE 73; RESP 18; TEMP 36.8; O2SAT 96
--- NOTE | 2019-10-17 12:01 | PM.SDS ---
Short Stay Summary Providers Date of Admit/Discharge: 10/17/19 Attending Provider: Kobi Esparza MD Primary Care Provider: Kelvin Vallecillo MD Chief Complaint: ABD PAIN HPI History of Present Illness Mr Damian Escalante is a 54 year old male emergency department with worsening abdominal pain and was found to have acute appendicitis, patient undergone laparoscopic appendectomy and he did have a perforated appendicitis towards the base. Patient was kept in the hospital for IV antibiotics till his WBC count trended to normal and was tolerating p.o. intake, passing gas and no fevers were recorded in addition maintained to be hemodynamically stable. Review of Systems General: Reports: 10 or more systems reviewed and unremarkable except in HPI and below Home Meds/Allergies Home Medications and Allergies Home Medications Medication Instructions Recorded Confirmed Type garlic 400 mg PO DAILY 10/15/19 10/15/19 History testosterone cypionate 200 mg IM .COMPEX 10/15/19 10/15/19 History Allergies Allergy/AdvReac Type Severity Reaction Status Date / Time No Known Allergies Allergy Verified 10/17/19 12:02 PFSH Acute PFSH: Medical History ASHD (arteriosclerotic heart disease) Nonobstructive Chest pain (~06/2019) Erectile dysfunction Essential hypertension Hypogonadism in male Pericarditis Spinal cord stimulator status Surgical History History of ankle surgery BILATERAL Previous back surgery Social History Smoking and tobacco status: never smoked Alcohol intake: current Alcohol intake frequency: holidays/special occasions only Household members: spouse Marital status: service: Yes branch: [employer] Current occupational status: employed 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 Current gender identity: Male Vitals/I&O/Wt Last Vital Signs Temp 98.2 F 10/17/19 11:49 Pulse 73 10/17/19 11:49 Resp 18 10/17/19 11:49 BP 136/84 10/17/19 11:49 Pulse Ox 96 10/17/19 11:49 10/16/19 10/17/19 10/17/19 22:59 06:59 14:59 Intake Total 1018.75 / 2328.75 1002.083 / 3330.833 460 / 460 Output Total 825 / 1825 725 / 2550 Balance 193.75 / 503.75 277.083 / 780.833 460 / 460 Physical Exam Narrative: EXAM NARRATIVE: Patient is conscious alert oriented X3 BMI 28 Head and neck examination PERRLA no masses no cervical lymphadenopathy no jaundice Abdomen nontender nondistended soft no organomegaly guarding or rigidity/no signs of peritonitis Incisions are clean dry and intact Extremities no cyanosis no clubbing no edema Hospital Course Discharge Summary: 54 years old gentleman undergone uneventful laparoscopic appendectomy for perforated appendicitis and has been having appropriate postoperative hospital course without complications, tolerated p.o. intake and passing gas and no fever recorded and maintained to be hemodynamically stable. Plan to discharge home today on oral antibiotics for 7 days and return to my office in 7 to 10 days SSS Data Data Completed and Pending: Completed Studies During Hospitalization Category Date Time Status CT abdomen pelvis w con* [id number] Urge nt Cat Scan 10/15/19 07:08 Completed Pending at discharge Category Date Time Status ES surgery / GI i mages Routine Exams 10/15/19 11:25 Ordered Pathology: Surgic al [PTH] Routine Pth 10/15/19 12:44 Received Diagnoses at Discharge Discharge Diagnosis (1) Acute appendicitis: Status: Resolved Discharge Plan Discharge Patient Disposition: Home Condition: Stable Prescriptions: [place] 5-325 mg tablet 1 tab PO Q6H PRN (Reason: pain) Qty: 28 RF: 0 Cipro 500 mg tablet 500 mg PO BID 7 Days Qty: 14 RF: 0 Flagyl 500 mg tablet 500 mg PO Q8H 7 Days Qty: 21 RF: 0 Continued losartan 50 mg tablet 50 mg PO DAILY Qty: 30 RF: 5 testosterone cypionate 200 mg/mL oil 200 mg IM .COMPEX RF: 0 garlic 400 mg Tablet 400 mg PO DAILY RF: 0 Discharge Orders: Discharge Order (Routine); Ordered 10/17/19 Ordered By: Kobi Esparza Referrals: Kobi Esparza MD [Physician] - (Dental surgery office in 7 to 10 days) Discharge Diet: Advance as tolerated Activity Restrictions/Additional Instructions: 1. Patient can shower after 48 hours from surgery 2. Remove Dermabond 7 to 10 days after surgery, if there is a secondary dressing can take down after 48 hours. 3. Up and walking as tolerated 4. Do lift more than 5 pounds first 2 weeks after surgery and not more than 25 pounds 6 to 8 weeks after surgery. 5. Do not operate heavy machinery or drive while using pain medications. 6.Contact the office or return to the ER for worsening nausea vomiting fevers or chills, or noticing any redness around incision sites or discharge. 7. Avoid constipation Attestations Medical Necessity Statement*: Observation status plan to discharge home today Time Spent in Patient Care*: less than 30 min Specific Discharge Activities: Specific discharge activities: educating patient Status at Discharge: Cognitive status at discharge: cognitively intact, Behavioral status at discharge: cooperative, Functional status at discharge: independent ambulation Overall status at discharge: patient is progressing back to baseline Quality Metrics Clinical Quality Measures: During this hospital stay, did patient experience: None Coding Level of Care Code Acute Subway Guard for Darlin Owusu Diagnoses Acute appendicitis K35.80
[2019-10-17] MEDS: HYDROcodone-acetaminophen 5-325 mg Tablet 1 TAB PO (12:34)
--- NOTE | 2019-10-17 12:36 | PC.NURSE ---
discharge instructions provided and denies further questions or concerns.
[2019-10-17 13:17] VITALS: BP 136/84; PULSE 73; RESP 18; TEMP 36.8; O2SAT 96
== END 2019-10-17 13:19 | disposition home or self-care (01) ==
LOC: ER 07:20 → MEDSURG 09:03 → OPS 09:05 → MEDSURG 13:33
PROVIDERS: Emergency Medicine; Admitting Provider Surgery; Emergency Provider Family Medicine; PCP Urology; Visit Provider Surgery
PROC: (CPT 44950; principal; 2019-10-15 11:05)
DX: K35.32 Acute appendicitis with perforation, localized peritonitis, and gangrene, without abscess (principal); I25.10 Atherosclerotic heart disease of native coronary artery without angina pectoris; I10 Essential (primary) hypertension
CPT/HCPCS: 44970; 12345; 36415; 74177; 80048; 80053; 81001; 83605; 83690; 85025; 88304; 93005; 96361; 96365; 96366; 96374; 96375; 96376; 99283; 99285; G0378; J0131; J0330; J1100; J1170; J2270; J2370; J2405; J2543; J2704; J2710; J3010; J3490; J7030; Q9967

== ENCOUNTER → 2020-05-01 09:46 | Outpatient (BNVA) | payer OTHER, BC, SELFPAY | PROVIDERS: PCP Urology; Visit Provider Urology | DX: Z12.5 Encounter for screening for malignant neoplasm of prostate (principal); N52.9 Male erectile dysfunction, unspecified; E29.1 Testicular hypofunction; R35.8 Other polyuria; D75.1 Secondary polycythemia; R79.89 Other specified abnormal findings of blood chemistry | CPT/HCPCS: 81003; 84403; 85025; G0103 ==

== ENCOUNTER → 2021-01-21 10:03 | Outpatient (BNVA) | payer OTHER, BC, SELFPAY | PROVIDERS: PCP Urology; Referring Provider Family Medicine; Visit Provider Podiatrist Foot & Ankle Surgery | DX: M79.671 Pain in right foot (principal); M79.672 Pain in left foot | CPT/HCPCS: 73630 ==

== ENCOUNTER 2021-01-30 09:16 | Outpatient (RCR) | payer OTHER, SELFPAY | END 2021-02-22 23:59 | disposition home or self-care (01) | LOC: SPT 09:16 | PROVIDERS: PCP Urology; Visit Provider Podiatrist Foot & Ankle Surgery | DX: Q66.72 Congenital pes cavus, left foot (principal); Q66.71 Congenital pes cavus, right foot | CPT/HCPCS: 97161 ==

== ENCOUNTER 2021-02-23 06:00 | Outpatient (RCR) | payer OTHER, SELFPAY | END 2021-02-26 14:57 | disposition home or self-care (01) | LOC: SPT 06:00 | PROVIDERS: PCP Urology; Visit Provider Podiatrist Foot & Ankle Surgery | DX: Q66.72 Congenital pes cavus, left foot (principal); Q66.71 Congenital pes cavus, right foot | CPT/HCPCS: 97760; L3030 ==

== ENCOUNTER 2021-02-25 11:41 | Outpatient (CLI) | payer OTHER, SELFPAY ==
[2021-02-25 12:30] LABS: Hematocrit 53.7 % (42.0-52.0); Mean Corpuscular HGB Conc 35.4 g/dL (30.0-36.0); Mean Corpuscular Hemoglobin 31.6 pg (28.0-34.0); Mean Corpuscular Volume 89.2 fl (80-94); Mean Platelet Volume 10.3 fL (7.4-10.4); Platelet Count 273 10^3/cmm (130-400); Red Blood Count 6.02 10^6/uL (4.1-5.3); Red Cell Distribution Width 14.2 % (12.1-15.1); White Blood Count 8.7 10^3/uL (4.0-10.0)
[2021-02-25 12:42] LABS: Alanine Aminotransferase 78 U/L (0-41); Albumin Level 4.2 g/dL (3.5-5.2); Alkaline Phosphatase 105 IU/L (40-130); Blood Urea Nitrogen 20 mg/dL (6-20); Carbon Dioxide 20 mmol/L (22-29); Chloride 103 mmol/L (98-107); Globulin 2.7 g/dL (1.3-4.6); Glucose 101 mg/dL (65-115); Osmolality Calculated 287 mOsm/kg (285-295); Sodium 137 mmol/L (136-145); Total Bilirubin 0.6 mg/dL (0.15-1.2); Total Protein 6.9 g/dL (6.6-8.7)
[2021-02-25 12:49] LABS: Anion Gap 18.2 (5-19); Aspartate Amino Transferase 49 U/L (0-40); Potassium 4.2 mmol/L (3.5-5.1)
[2021-02-25 13:37] LABS: Absolute Eosinophils 0.1 10^3/cmm (0.0-0.7); Absolute Segmented Neutrophil 6.2 10/cmm (1.6-7.1); Band Neutrophils Absolute 0.2 10^3/cmm (0.0-1.2); Eosinophils 2 %; Lymphocytes 21 %; Monocytes Absolute 0.3 10^3/cmm (0.1-0.6); Segmented Neutrophils 71 %; Total Cells Counted 100 (0-100)
[2021-02-25 13:38] LABS: Absolute Neutrophil 6.4 10^3/cmm (1.4-6.5); Giant Platelets Trace; Platelet Estimate Normal (Normal)
[2021-02-25 13:43] LABS: Lymphocytes Absolute 1.8 10^3/cmm (1.2-3.4)
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
[2021-02-26 14:08] LABS: Erythropoietin 17.9 mIU/mL (2.6-18.5)
[2021-03-08 22:03] LABS: CALR Exon 9 Mutation NOT DETECTED (NOT DETECTED); CSF3R Exon 14/17 Mutation NOT DETECTED (NOT DETECTED); JAK2 Exon 12 Mutation NOT DETECTED (NOT DETECTED); JAK2 V617 Block Specimen ID NG; JAK2 V617 Clinical Indication NG; JAK2 V617 Mutation NOT DETECTED (NOT DETECTED); JAK2 V617 Specimen Source WB; MPL Exon 12 Mutation NOT DETECTED (NOT DETECTED)
== END 2021-02-25 11:42 | disposition home or self-care (01) ==
LOC: ONCMED 11:46
PROVIDERS: PCP Urology; Visit Provider Internal Medicine Hematology & Oncology
DX: D45 Polycythemia vera (principal); E29.1 Testicular hypofunction; Z79.899 Other long term (current) drug therapy
CPT/HCPCS: 36415; 80053; 81270; 82668; 85007; 85027; 99195; 99205

== ENCOUNTER 2021-04-08 09:16 | Outpatient (CLI) | payer OTHER, SELFPAY ==
[2021-04-08 10:24] LABS: Basophils % 0.3 %; Eosinophils # 0.3 10^3/uL (0.0-0.8); Eosinophils % 3.1 %; Hematocrit 51.6 % (42.0-52.0); Hemoglobin 17.5 g/dL (11.7-16.6); Lymphocytes # 1.3 10^3/uL (0.8-4.8); Lymphocytes % 15.2 %; Mean Corpuscular HGB Conc 33.9 g/dL (30.0-36.0); Mean Corpuscular Hemoglobin 31.2 pg (28.0-34.0); Monocytes # 0.6 10^3/uL (0.2-0.9); Monocytes % 6.9 %; Neutrophils % 74.2 %; Nucleated Red Blood Cells % 0 %; Platelet Count 215 10^3/cmm (130-400); Red Blood Count 5.61 10^6/uL (4.1-5.3); Red Cell Distribution Width 12.9 % (12.1-15.1); White Blood Count 8.6 10^3/uL (4.0-10.0)
== END 2021-04-08 09:17 | disposition home or self-care (01) ==
LOC: ONCMED 09:20
PROVIDERS: Nurse Practitioner Family; PCP Family Medicine; Visit Provider Internal Medicine Hematology & Oncology
DX: D75.1 Secondary polycythemia (principal); G47.30 Sleep apnea, unspecified; E29.1 Testicular hypofunction; Z79.899 Other long term (current) drug therapy
CPT/HCPCS: 36415; 85025; 99214

== ENCOUNTER 2021-04-17 08:05 | Outpatient (CLI) | payer OTHER, SELFPAY ==
[2021-04-17 08:37] LABS: Basophils % 0.1 %; Eosinophils # 0.2 10^3/uL (0.0-0.8); Eosinophils % 2.2 %; Hematocrit 50.5 % (42.0-52.0); Hemoglobin 17.3 g/dL (11.7-16.6); Lymphocytes # 1.4 10^3/uL (0.8-4.8); Lymphocytes % 17.3 %; Mean Corpuscular HGB Conc 34.3 g/dL (30.0-36.0); Mean Corpuscular Hemoglobin 30.9 pg (28.0-34.0); Mean Corpuscular Volume 90.3 fl (80-94); Mean Platelet Volume 10.3 fL (7.4-10.4); Monocytes # 0.6 10^3/uL (0.2-0.9); Monocytes % 8.1 %; Neutrophils # 5.62 10^3/uL (1.8-7.7); Neutrophils % 71.8 %; Nucleated Red Blood Cells % 0 %; Platelet Count 227 10^3/cmm (130-400); Red Blood Count 5.59 10^6/uL (4.1-5.3); White Blood Count 7.8 10^3/uL (4.0-10.0)
== END 2021-04-17 08:06 | disposition home or self-care (01) ==
LOC: ONCMED 08:07
PROVIDERS: Internal Medicine Hematology & Oncology; PCP Family Medicine; Visit Provider Nurse Practitioner Family
DX: D75.1 Secondary polycythemia (principal); R79.89 Other specified abnormal findings of blood chemistry; Z79.899 Other long term (current) drug therapy
CPT/HCPCS: 81003; 84403; 85025; 99195; G0103

== ENCOUNTER 2021-05-07 09:02 | Outpatient (CLI) | payer OTHER, SELFPAY ==
[2021-05-07 09:45] LABS: Basophils % 0.2 %; Eosinophils # 0.1 10^3/uL (0.0-0.8); Eosinophils % 1.8 %; Hemoglobin 18.8 g/dL (11.7-16.6); Lymphocytes # 1.3 10^3/uL (0.8-4.8); Lymphocytes % 21.5 %; Mean Corpuscular HGB Conc 33.6 g/dL (30.0-36.0); Mean Corpuscular Hemoglobin 30.3 pg (28.0-34.0); Mean Corpuscular Volume 90.3 fl (80-94); Mean Platelet Volume 10.7 fL (7.4-10.4); Monocytes # 0.4 10^3/uL (0.2-0.9); Monocytes % 6.5 %; Neutrophils # 4.31 10^3/uL (1.8-7.7); Neutrophils % 69.7 %; Nucleated Red Blood Cells % 0 %; Platelet Count 202 10^3/cmm (130-400); Red Cell Distribution Width 13.2 % (12.1-15.1); White Blood Count 6.2 10^3/uL (4.0-10.0)
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
== END 2021-05-07 09:03 | disposition home or self-care (01) ==
PROVIDERS: PCP Family Medicine; Visit Provider Internal Medicine Hematology & Oncology
DX: D45 Polycythemia vera (principal); E29.1 Testicular hypofunction; G47.33 Obstructive sleep apnea (adult) (pediatric); Z79.899 Other long term (current) drug therapy
CPT/HCPCS: 36415; 85025; 99195; 99214

== ENCOUNTER 2021-05-16 11:16 | Outpatient (CLI) | payer OTHER, SELFPAY ==
[2021-05-16 12:30] LABS: Basophils # 0.1 10^3/uL (0.0-0.1); Basophils % 0.5 %; Eosinophils # 0.2 10^3/uL (0.0-0.8); Eosinophils % 1.5 %; Hematocrit 54.9 % (42.0-52.0); Hemoglobin 18.3 g/dL (11.7-16.6); Lymphocytes # 1.7 10^3/uL (0.8-4.8); Lymphocytes % 15.6 %; Mean Corpuscular HGB Conc 33.3 g/dL (30.0-36.0); Mean Corpuscular Volume 89.9 fl (80-94); Monocytes # 0.8 10^3/uL (0.2-0.9); Monocytes % 7.6 %; Neutrophils # 8.07 10^3/uL (1.8-7.7); Neutrophils % 74.5 %; Nucleated Red Blood Cells % 0 %; Platelet Count 292 10^3/cmm (130-400); Red Blood Count 6.11 10^6/uL (4.1-5.3); Red Cell Distribution Width 13.4 % (12.1-15.1); White Blood Count 10.8 10^3/uL (4.0-10.0)
[2021-05-16 12:57] LABS: Free T4 Free Thyroxine 1.06 ng/dL (0.82-1.77); Testosterone Total 79.9 ng/dL (193-740)
[2021-05-16 13:02] LABS: Luteinizing Hormone 0.1 mIU/mL (1.7-8.6); Prolactin 5.45 ng/mL (4.0-15.2)
[2021-05-20 14:33] LABS: Testosterone, Free 7.8 pg/mL (46.0-224.0)
== END 2021-05-16 11:17 | disposition home or self-care (01) ==
LOC: LAB 11:18
PROVIDERS: PCP Family Medicine; Visit Provider Internal Medicine
DX: E29.1 Testicular hypofunction (principal); N52.9 Male erectile dysfunction, unspecified; R79.89 Other specified abnormal findings of blood chemistry
CPT/HCPCS: 83001; 83002; 84146; 84402; 84403; 84439; 85025

== ENCOUNTER → 2022-01-22 09:28 | Outpatient (BNVA) | payer OTHER, SELFPAY | PROVIDERS: PCP Family Medicine; Visit Provider Family Medicine | DX: F42.9 Obsessive-compulsive disorder, unspecified (principal); E29.1 Testicular hypofunction; I10 Essential (primary) hypertension; Z76.89 Persons encountering health services in other specified circumstances | CPT/HCPCS: 80053; 80061; 85025 ==

== ENCOUNTER 2022-02-26 08:08 | Oncology outpatient (recurring) (ONCR) | payer OTHER, SELFPAY ==
[2022-02-26 08:48] LABS: Basophils % 0.3 %; Eosinophils # 0.2 10^3/uL (0.0-0.8); Eosinophils % 2.4 %; Hematocrit 54.7 % (42.0-52.0); Hemoglobin 17.6 g/dL (11.7-16.6); Lymphocytes # 1.1 10^3/uL (0.8-4.8); Lymphocytes % 17.2 %; Mean Corpuscular HGB Conc 32.2 g/dL (30.0-36.0); Mean Corpuscular Hemoglobin 27.5 pg (28.0-34.0); Mean Corpuscular Volume 85.3 fl (80-94); Mean Platelet Volume 9.8 fL (7.4-10.4); Monocytes # 0.6 10^3/uL (0.2-0.9); Monocytes % 9.4 %; Neutrophils # 4.65 10^3/uL (1.8-7.7); Neutrophils % 70.2 %; Nucleated Red Blood Cells % 0 %; Platelet Count 250 10^3/cmm (130-400); Red Blood Count 6.41 10^6/uL (4.1-5.3); Red Cell Distribution Width 15.7 % (12.1-15.1); White Blood Count 6.6 10^3/uL (4.0-10.0)
[2022-02-26 09:03] LABS: Ferritin 104 ng/mL (30-400)
== END 2022-03-25 23:59 | disposition home or self-care (01) ==
PROVIDERS: Internal Medicine; PCP Family Medicine; Visit Provider Internal Medicine Hematology & Oncology
DX: D75.1 Secondary polycythemia (principal); R51.9 Headache, unspecified; G47.30 Sleep apnea, unspecified; R53.1 Weakness; R53.83 Other fatigue; Q27.1 Congenital renal artery stenosis; Z79.82 Long term (current) use of aspirin; Z79.899 Other long term (current) drug therapy
CPT/HCPCS: 36415; 82728; 85025

== ENCOUNTER → 2022-03-14 11:16 | Outpatient (BNVA) | payer OTHER, SELFPAY | PROVIDERS: PCP Family Medicine; Visit Provider Nurse Practitioner Family | DX: D48.9 Neoplasm of uncertain behavior, unspecified (principal); L81.4 Other melanin hyperpigmentation; D18.01 Hemangioma of skin and subcutaneous tissue; D22.9 Melanocytic nevi, unspecified; L57.0 Actinic keratosis; Z12.83 Encounter for screening for malignant neoplasm of skin; L64.9 Androgenic alopecia, unspecified | CPT/HCPCS: 88305 ==

== ENCOUNTER → 2022-04-17 09:32 | Outpatient (BNVA) | payer OTHER, SELFPAY | PROVIDERS: PCP Family Medicine; Visit Provider Urology | DX: N52.9 Male erectile dysfunction, unspecified (principal); R79.89 Other specified abnormal findings of blood chemistry; E29.1 Testicular hypofunction; D75.1 Secondary polycythemia; Z12.5 Encounter for screening for malignant neoplasm of prostate | CPT/HCPCS: 36415; 81003; 84403 ==

== ENCOUNTER 2022-07-02 12:11 | Outpatient (CLI) | payer OTHER, SELFPAY ==
--- NOTE | 2022-07-02 12:00 | MR_ITS ---
WS: [id number] MRI BRAIN WITHOUT AND WITH CONTRAST, ATTENTION DIRECTED TO THE PITUITARY GLAND HISTORY: headache COMPARISON: None available. TECHNIQUE: Diffusion-weighted imaging, axial T2 sequence, and postcontrast images in 3 planes are per formed. High-resolution coronal and sagittal imaging performed through the pituitary region with and without intravenous gadolinium. MultiHance 20 mL IV. Diffusion-weighted imaging is normal. No hemorrhage or prior infarct. No significant atrophy. Pituitary gland: no enlargement of the pituitary gland. On the postcontrast imaging there are areas o f decreased enhancement in the dorsum sellae consistent with small microadenomas. Bilateral areas of nonenhancement measure less than a centimeter. These each measure approximately 5 mm in height. The a djacent pituitary gland is small and normally enhancing within the periphery. There is no deviation o f the optic chiasm or the infundibulum. No prior infarcts. Mild atrophy. No significant small vessel ischemic disease. No enhancing masses. N ormal ventricles. Normal sinuses and mastoid air cells. No calvarial lesions. MR/MR pituitary wo/w con* [id number] IMPRESSION: 1. Bilateral subcentimeter areas of decreased enhancement in the pituitary gla nd. Each measure approximately 5 mm in height and are very suspicious for very small microadenomas. Enhancement pattern is less than the adjacent pituitary gl and. 2. No prior cerebral or cerebellar infarcts. No enhancing masses.
[2022-07-02] MEDS: gadobenate dimeglumine 20 mL vial IV (13:38)
== END 2022-07-02 12:12 | disposition home or self-care (01) ==
PROVIDERS: PCP Family Medicine; Visit Provider Internal Medicine
DX: E23.7 Disorder of pituitary gland, unspecified (principal); R51.9 Headache, unspecified
CPT/HCPCS: 70553; A9577

== ENCOUNTER 2022-07-25 10:05 | Outpatient (CLI) | payer OTHER, SELFPAY ==
[2022-07-25 11:04] LABS: Cortisol Random 10.15 ug/dL (2.47-19.5); Free T4 Free Thyroxine 1.03 ng/dL (0.82-1.77); Thyroid Stimulating Hormone 2.16 uIU/mL (0.27-4.20)
[2022-07-25 11:32] LABS: Prolactin 12.59 ng/mL (4.0-15.2)
[2022-07-30 21:00] LABS: Adrenocorticotropic Hormone 23 pg/mL (6-50)
[2022-08-02 16:49] LABS: IGF1 LC/MS 107 ng/mL (50-317); Z Score (Male) -0.4 SD (-2.0 - +2.0)
== END 2022-07-25 10:06 | disposition home or self-care (01) ==
LOC: LAB 10:07
PROVIDERS: PCP Family Medicine; Visit Provider Internal Medicine
DX: E23.7 Disorder of pituitary gland, unspecified (principal); R79.89 Other specified abnormal findings of blood chemistry; E29.1 Testicular hypofunction; D75.1 Secondary polycythemia
CPT/HCPCS: 36415; 82024; 82533; 84146; 84305; 84439; 84443

== ENCOUNTER → 2023-05-22 14:43 | Outpatient (BNVA) | payer OTHER, SELFPAY | PROVIDERS: PCP Family Medicine; Visit Provider Family Medicine | DX: R79.89 Other specified abnormal findings of blood chemistry; D75.1 Secondary polycythemia; E29.1 Testicular hypofunction; N52.9 Male erectile dysfunction, unspecified; E23.7 Disorder of pituitary gland, unspecified; E78.2 Mixed hyperlipidemia; Z12.5 Encounter for screening for malignant neoplasm of prostate; I10 Essential (primary) hypertension | CPT/HCPCS: 80053; 80061; 84146; 84403; 84443; 85025; G0103 ==

== ENCOUNTER 2024-06-21 07:12 | Outpatient (CLI) | payer OTHER, SELFPAY ==
--- NOTE | 2024-06-21 07:15 | MR_ITS ---
WS: [id number] MRI OF THE HEAD WITHOUT AND WITH GADOLINIUM ENHANCEMENT PITUITARY PROTOCOL. INDICATION: Microadenomas TECHNIQUE: Sagittal T1, axial T2 axial FLAIR axial diffusion. Coronal T2 imaging. Axial susceptibility weighted imaging. Post gadolinium imaging with pituitary protocol. Dynamic pituitary imaging. FINDINGS: Comparison 2022 Previously described hypoenhancing suspected microadenomas are similar in appearance compared to previous. Normal optic chiasm and pituitary infundibulum. Both lesions measure approximately 5 mm no significant change compared to previous. No evidence of suprasellar extension. No significant progression. No evidence of restricted diffusion to suggest acute ischemia. Normal posterior fossa. Normal vascular flow voids at the skull base. No extra-axial fluid collections. No evidence of mass or mass effect. Mild mucosal thickening in the paranasal sinuses. Mastoid air cells are well aerated. Normal posterior nasopharynx. No hemosiderin on the susceptibility weighted images. MR/MR pituitary wo/w con* [id number] IMPRESSION: 1. No changes in the suspected previously described 5 mm microadenomas compar ed to 2022. No evidence of suprasellar extension. 2. Normal optic chiasm and pituitary infundibulum. 3. No other acute findings.
[2024-06-21] MEDS: gadobenate dimeglumine 20 mL vial IV (08:05)
== END 2024-06-21 07:13 | disposition home or self-care (01) ==
PROVIDERS: PCP Family Medicine; Visit Provider Family Medicine
DX: E23.7 Disorder of pituitary gland, unspecified (principal); J34.89 Other specified disorders of nose and nasal sinuses
CPT/HCPCS: 70553